=== PATIENT | female | born 1955 | race Two or more races ===

== ENCOUNTER → 2018-02-05 08:32 | Outpatient (CLI) | payer BC | END | disposition home or self-care (01) | LOC: D.US 08:32 | DX: R74.8 Abnormal levels of other serum enzymes (principal) ==

== ENCOUNTER → 2018-02-13 09:06 | Outpatient (CLI) | payer BC | END | disposition home or self-care (01) | LOC: D.CT 09:06 | DX: R16.0 Hepatomegaly, not elsewhere classified (principal) ==